=== PATIENT | female | born 1965 | race Caucasian/White ===

== ENCOUNTER 2017-03-17 12:41 | Emergency (ER) | payer SELFPAY ==
--- NOTE | 2017-03-17 12:54 | ED Physician Documentation ---
Abdominal Pain - HISTORIAN Historian: patient - HPI Stated Complaint: abdominal pain Chief Complaint: Abdominal Pain Onset: days ago (3) Duration: constant, persistent, worse Timing: worse Context: denies: out of country travel, bad food, recent trauma Severity: moderate Quality: pain, sharp Associated Symptoms: none, loss of appetite. denies: fever, nausea, vomiting, chest pain Exacerbated by: movements, upright position. denies: cough Relieved by: supine Further Comments: yes (Patient states one year ago she had a colon resection. She had no residual issues post surgery. However three days ago she started with a pain in her abdomen (which she reports she gets and this pain is usually gas) She states this am the pain was increasing and sharp (mid abdomen below umbulicus) she denies a fever. She has had two episodes of vomiting. She denies any new exposures. No blood in stool or vomit. She has not tried anything OTC for pain) - ROS CONST: no problems GI/: denies: constipation CVS/RESP: denies: shortness of breath, hurts to breath MS/SKIN/LYMPH: none NEURO/PSYCH: denies: headache, dizziness - SOCIAL HX Smoking History: cigarettes Alcohol Use: none Drug Use: none - FAMILY HX Family History: none - PAST HX Past History: other (HTN she does not take her meds ) Other History: other Surgeries/Procedures: other (colon resection x 1 year ago ) Home Medications: Ambulatory Orders Medication Instructions Recorded NK [NK] 03/17/17 Allergies/Adverse Reactions: Allergies Allergy/AdvReac Type Severity Reaction Status Date / Time No Known Allergies Allergy Verified 03/17/17 13:03 - VITAL SIGNS Vital Signs: Vital Signs Temp Pulse Resp BP Pulse Ox 98.0 F 71 18 160/99 96 03/17/17 12:44 03/17/17 12:44 03/17/17 12:44 03/17/17 12:44 03/17/17 12:44 - REVIEWED ASSESSMENTS Nursing Assessment Reviewed: Yes Vitals Reviewed: Yes ED Results Lab/Radiology - Lab Results Lab Results: Lab Results 03/17/17 03/17/17 13:20 13:20 WBC 5.80 K/ul K/ul (4.00-12.00) RBC 5.42 M/ul H M/ul (3.90-5.20) Hgb 17.7 g/dL H g/dL (12.0-16.0) Hct 51.1 % H % (34.5-46.5) MCV 94.3 fl fl (80.0-100.0) MCH 32.7 pg pg (28.0-34.0) MCHC 34.7 g/dL g/dL (30.0-36.0) RDW 13.6 % % (11.3-14.3) Plt Count 179 K/mm3 K/mm3 (130-400) Neut % (Auto) 76.3 % % (39.0-79.0) Lymph % (Auto) 13.9 % L % (16.0-50.0) Tripp % (Auto) 5.1 % % (0.0-11.0) Eos % (Auto) 3.0 % % (0.0-6.8) Baso % (Auto) 0.2 (0.0-1.5) Neut # (Auto) 4.4 # k/uL # k/uL (1.4-7.7) Lymph # (Auto) 0.8 # k/uL # k/uL (0.6-4.0) Tripp # (Auto) 0.3 # k/uL # k/uL (0.0-0.9) Eos # (Auto) 0.2 # k/uL # k/uL (0.0-0.6) Baso # (Auto) 0.0 # k/uL # k/uL (0.0-0.5) Reactive Lymphs % 1.4 % % (0.0-5.0) Reactive Lymphs # 0.1 # k/uL # k/uL (0.0-0.8) Sodium 135 mmol/L L mmol/L (136-145) Potassium 4.2 mmol/L mmol/L (3.5-5.1) Chloride 102 mmol/L mmol/L (98-107) Carbon Dioxide 26 mmol/L mmol/L (22-30) BUN 17 mg/dL mg/dL (7-17) Creatinine 0.70 mg/dL mg/dL (0.52-1.04) Estimated Creat Clear 216 Est GFR ( Amer) > 60 (60 - ) Est GFR (Non-Af Amer) > 60 (60 - ) Glucose 99 mg/dL mg/dL (74-106) Calcium 9.6 mg/dL mg/dL (8.4-10.2) Total Bilirubin 1.5 mg/dL H mg/dL (0.2-1.3) AST 21 U/L U/L (15-46) ALT 32 U/L U/L (13-69) Alkaline Phosphatase 77 U/L U/L (38-126) Total Protein 7.3 g/dL g/dL (6.3-8.2) Albumin 3.9 g/dL g/dL (3.5-5.0) - Radiology Radiology Impressions: Examination: CT Abdomen/pelvis History: Abdominal discomfort. History of abdominal hernias. Comparison exams: None available for direct review Technique: CT Abdomen/pelvis with IV protocol. Findings: Liver demonstrates diffuse low attenuation. No central lesion. Splenic cysts. Adrenals, pancreas, and gallbladder are without gross irregularity. No abnormal enhancement. No gallstone. Surgical clips involving the left kidney. Right kidney without suspicious calcification. No abnormal ureteric dilation or central calcification in their course through the abdomen and pelvis. Bladder margin without gross abnormality. Bladder decompressed. Abdominal aorta demonstrates peripheral atherosclerotic disease. No aneurysm. Cardiac silhouette not enlarged. No pericardial effusion. Midline abdominal hernia. Numerous loops of small bowel extending to the hernia and demonstrate dilation and air fluid levels. Stool within the large bowel limiting sensitivity. Sigmoid diverticula. No adjacent inflammation. No free fluid. Anterior abdominal wall mesh. Hiatal hernia. Osseous structures demonstrate degenerative changes.. Lung bases demonstrate dependent atelectasis. No effusion. Impression: Anterior midline hernia. Numerous loops of small bowel extending to the hernia demonstrating dilation, mucosal thickening, and inflammation consistent with small bowel obstruction/incarceration. Surgical consultation recommended if not already obtained. Fatty liver. No gallstone. Left renal surgical changes. Correlate with pertinent history. No suspicious a right renal calcifications. Sigmoid diverticulosis. No evidence for acute diverticulitis. Hiatal hernia. Lung base scarring - no consolidation or effusion. Electronically signed on Mar 17, 2017 2:17:42 PM GROUND PRODUCTS DIRECTOR by: Boone Davila - Orders Orders: ED Orders Category Date Time Status Place IV Lock 1T Care 03/17/17 13:[address] ABD & PELVIS W/ CON Stat Exams 03/17/17 Taken CBC/PLATELET/DIFF Stat Lab 03/17/17 13:20 Completed CMP Stat Lab 03/17/17 13:20 Completed UA W/MICRO IF INDICATED Routine Lab 03/17/17 13:16 Ordered 0.9 % Sodium Chloride [Normal Saline] 1,000 ml Med 03/17/17 13:16 Discontinued IV Q1H Ketorolac Tromethamine [Toradol] Med 03/17/17 13:17 Discontinued 30 mg IVP NOW ONE Abdominal Pain Physical Exam - Physical Exam General Appearance: mild distress EENT: eye inspection normal RESPIRATORY: no resp distress, chest non-tender, breath sounds normal CVS: reg rate & rhythm, heart sounds normal, equal pulses, no murmur ABDOMEN: soft, normal bowel sounds, guarding, other (midline abdominal pain with palpation . Buldging area that is painful in same area of pain. ) BACK: normal inspection SKIN: warm/dry, normal color EXTREMITIES: non-tender, normal range of motion, no evidence of injury NEURO: oriented X3, CN's nml as tested Vital Signs: Vital Signs Temp Pulse Resp BP Pulse Ox 98.0 F 71 18 160/99 96 03/17/17 12:44 03/17/17 12:44 03/17/17 12:44 03/17/17 12:44 03/17/17 12:44 Discharge Clincal Impression: Bowel obstruction Qualifiers: Intestinal obstruction type: unspecified Intestinal obstruction extent: partial Qualified Code(s): K56.600 - Partial intestinal obstruction, unspecified as to cause Referrals: Primary Doctor,No [Primary Care Provider] - 2 Days Comments: [facility] in regards to bowel obstruction. Dr Rizo in ER is accepting the patient. Patient notified. She reports her pain is better at this time. Denies any nausea. Transfer will be started. DG Condition: Stable Disposition: XFER SHT-TRM HOSP Decision to Admit: [id number] Date of Decison to Admit: 03/17/17 Decision Time: 14:40
[2017-03-17] MEDS ORDERED: 0.9 % SODIUM CHLORIDE 1,000 ML IV ONE (13:16)
[2017-03-17] MEDS ORDERED: KETOROLAC TROMETHAMINE 30 MG/1ML VIAL IVP ONE (13:17)
[2017-03-17 13:29] LABS: BASOPHILS % 0.2 (0.0-1.5); MEAN CORPUSCULAR HEMOGLOBIN 32.7 pg (28.0-34.0); MEAN CORPUSCULAR VOLUME 94.3 fl (80.0-100.0); MONOCYTES % 5.1 % (0.0-11.0); NEUTROPHILS # 4.4 # k/uL (1.4-7.7)
[2017-03-17 13:43] LABS: eGFR (African) > 60; eGFR (Non-African) > 60
--- NOTE | 2017-03-17 14:53 | Diagnostic Imaging Report ---
HEENA ORTIZ [facility] [address] [address] [address] [place], [place]. [address] Report Submission Date: Mar 17, 2017 2:17:42 PM DOOR TO DOOR SELLING DISTRIBUTOR Patient Study Name: MEME RICHARDSON Date: Mar 17, 2017 1:45:19 PM DOOR TO DOOR SELLING DISTRIBUTOR Modality Type: CT\SR Gender: F Description: CT ABD & PELVIS W/ CON : 61 Institution: [facility] Physician: HEENA ORTIZ Examination: CT Abdomen/pelvis History: Abdominal discomfort. History of abdominal hernias. Comparison exams: None available for direct review Technique: CT Abdomen/pelvis with IV protocol. Findings: Liver demonstrates diffuse low attenuation. No central lesion. Splenic cysts. Adrenals, pancreas, and gallbladder are without gross irregularity. No abnormal enhancement. No gallstone. Surgical clips involving the left kidney. Right kidney without suspicious calcification. No abnormal ureteric dilation or central calcification in their course through the abdomen and pelvis. Bladder margin without gross abnormality. Bladder decompressed. Abdominal aorta demonstrates peripheral atherosclerotic disease. No aneurysm. Cardiac silhouette not enlarged. No pericardial effusion. Midline abdominal hernia. Numerous loops of small bowel extending to the hernia and demonstrate dilation and air fluid levels. Stool within the large bowel limiting sensitivity. Sigmoid diverticula. No adjacent inflammation. No free fluid. Anterior abdominal wall mesh. Hiatal hernia. Osseous structures demonstrate degenerative changes.. Lung bases demonstrate dependent atelectasis. No effusion. Impression: Anterior midline hernia. Numerous loops of small bowel extending to the hernia demonstrating dilation, mucosal thickening, and inflammation consistent with small bowel obstruction/incarceration. Surgical consultation recommended if not already obtained. Fatty liver. No gallstone. Left renal surgical changes. Correlate with pertinent history. No suspicious a right renal calcifications. Sigmoid diverticulosis. No evidence for acute diverticulitis. Hiatal hernia. Lung base scarring - no consolidation or effusion. Electronically signed on Mar 17, 2017 2:17:42 PM DOOR TO DOOR SELLING DISTRIBUTOR by: Boone PIZARRO
[2017-03-17 15:05] VITALS: BP 130/86
[2017-03-18 21:33] LABS: APPEARANCE,URINE CLEAR (CLEAR); COLOR,URINE YELLOW (YELLOW); OCCULT BLOOD,URINE NEGATIVE (NEGATIVE); PH URINE 5.5 (5.0 - 8.0); UROBILINOGEN URINE >=8.0 Eu (0.2-1.0)
== END 2017-03-17 14:50 | disposition short-term general hospital (02) ==
LOC: ED 12:41
DX: K56.600 Partial intestinal obstruction, unspecified as to cause (principal)
CPT/HCPCS: 74177; 80053; 85025; J1885; J7030; 81002; 96361; 96374; 99284; Q9967; S1016

== ENCOUNTER 2018-09-07 00:51 | Emergency (ER) | payer SELFPAY ==
[2018-09-07] MEDS ORDERED: cloNIDine HCL 0.1 MG TABLET PO ONE (01:10)
[2018-09-07] MEDS ORDERED: OXYMETAZOLINE HCL 0.05% NASAL SPRAY 30 ML IEN ONE (01:10)
[2018-09-18 18:15] LABS: eGFR (Non-African) > 60
[2018-09-18 18:16] LABS: BASOPHILS % 1.5 % (0.0-1.5)
== END 2018-09-07 03:50 ==
LOC: ED 00:51
DX: R04.0 Epistaxis (principal)
CPT/HCPCS: 30905; 36415; 80053; 85025; 85610; 85730; 99285; S1016

== ENCOUNTER 2018-12-05 09:41 | Outpatient (CLI) | payer OTHER ==
[2018-10-28 21:23] VITALS: BP 148/85
[~2018-12-05 09:41] MED LIST: BUPIVACAINE HCL 0.25% (2.5MG/ML) PF 10ML VIAL IV ONE; Lidocaine 1% 5ml 10 MG/ML VIAL ONE; methylPREDNISolone ACETATE 40 MG/ML VIAL IM ONE
--- NOTE | 2018-12-10 16:24 | CONSULTATION REPORT ---
CHIEF COMPLAINT: Left knee pain worse than right. HISTORY OF PRESENT ILLNESS: The patient is a 53-year-old female with BMI 47.9, seen today for recommendations regarding treatment of primarily left knee pain although she said the right hurts some. She has had troubles for three months or more. She says the onset has primarily been gradual, but it has been bothering her more recently. She denies metal allergy. She indicates that she says that the knee started hurting worse when she had a bone density scan done about three months ago. She says that it just started hurting worse when she had her legs straight and the left knee twisted and she has been having discomfort ever since. She does acknowledge having had arthritis in that left knee, longstanding. The right knee has been similarly affected, but not as bad. She notes that the pain is diffuse or allover, left knee. She describes it as aching, sharp, throbbing, tight, moderate in severity, 4/10 at rest and 9/10 with activity. She says she has had a decrease in knee motion and also presence of some knee swelling and stiffness. Her knee pain is worse with activity, weightbearing, walking, climbing stairs, bending, lateral movements, getting in and out of a car or chair, rising after sitting, kneeling, squatting, standing, descending stairs, better with Tylenol and rest. The pain has progressed with activities of daily living. She does not have night pain and the knee does not awaken her at night. She does report a fear of falling. She has experienced some locking, catching, giving out type symptomatology. She does indicate her ability to walk and get around is with moderate to mild difficulty. She has not used ambulatory assistive device. She is not taking narcotic pain medication for this problem. She did try Aleve, but it did not work. She has tried that for three months. She indicates that she has not had any steroid injections in either knee. She does report having had arthroscopic surgery on the right knee about 15 years ago and on the left knee a few months after that. Both were performed at [facility] in [place], [place]. She says that these procedures were done for bone spurs. She says she was told at that point that if she needed any more surgery, it would need to be a knee replacement in regard to the left knee, but she has not had further evaluations for consideration of that, she indicates. She does recall having had a series of viscosupplementation injections in each knee years ago, none recently. She has done physical therapy for three months, says she has tried using crutches for three months. She does note that Tylenol helps a little, not much. She does report back pain, also reports having some numbness, tingling and weakness. She reports having gone to the emergency department at the [facility] on 10/28/2018, was advised she had arthritis of the left knee, given a prescription for Medrol 4 mg daily, dispense 21, as well as naproxen. She received orthopedic referral at that time as well, was seen by Stephanie Oliveira, nurse practitioner. I did review the plain film x-rays obtained and the 10/28/2018 left knee x-rays reveal [id number] patellofemoral and mild lateral femorotibial compartment osteoarthritis with old peripatellar ossicles present, no evidence of fracture, dislocation or joint effusion. PAST MEDICAL/SURGICAL HISTORY: She reports positive past medical history for hypertension, pulmonary hypertension, gastric reflux, multiple abdominal hernias treated with mesh, appendectomy, cervical spine disease treated with surgical intervention in [place], [place] about 9 to 10 years ago. The patient indicates additional surgical intervention includes sections in the past times 2. She does report dental problems. She reports seeing Dr. Nasrin Zarco for routine primary care needs. The patient does indicate her asthma was diagnosed in 1988, hypertension 2004, not sure when her umbilical hernias were diagnosed. She indicates sleep apnea diagnosed around 2014. She did have an episode of pneumonia in 2019, notes that she does wear a CPAP for her sleep apnea. She reports additional surgical intervention including tonsillectomy, treatment of ruptured disc, appendix rupture 2016. SOCIAL HISTORY: The patient does smoke cigarettes, one pack per day since she was 21 years old. She denies alcohol use, abuse or history of same. She denies illicit drug use, abuse or history of same. She does not take fish oil. The patient has had three pregnancies, two live births, one . ALLERGIES: The patient has no known drug allergies. CURRENT MEDICATIONS: Include Tylenol 500 mg three to four tabs p.o. every three to four days, takes these on as-needed basis. She also takes two blood pressure medications, does not know the names of them. She also has an asthma inhaler name of which she does not recall and says she has not used that in about a year. She does indicate she has an oxygen concentrator, is advised that she needs to be on 3 liters of oxygen at night for her pulmonary hypertension. She normally does use the oxygen concentrator. FAMILY HISTORY: The patient reports family history of blood clots, bone disease and rheumatoid disorder. Family history is positive in mother for asthma, diabetes, hypertension, hypercholesterolemia, obesity and stroke. Positive in dad for hypertension. 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 REVIEW OF SYSTEMS: Positive for fatigue and weakness, positive for breast mass, positive for loss of hair, ringing in the ears, nosebleeds and nasal congestion, possible blurred vision, eye pain, flashing spots/light, glasses, positive for shortness of breath with activity, positive for leg swelling. The patient indicates she can climb one flight of stairs and sleeps on one pillow. She indicates she cannot walk two blocks without shortness of breath. She indicates she has had an echocardiogram workup, does not know what year it was. She indicates respiratory is positive for wheezing and asthma, bronchitis, history of pneumonia, sleep apnea. She has had chest x-ray and pulmonary function tests in the past. Gastrointestinal: Positive for nausea, vomiting, heartburn, diarrhea, constipation, stomach pain, blood in stools, black tarry stools in the past. She indicates she has had abdominal pain in the right upper and middle upper abdomen, positive abdominal fullness/increased gas/bloating or belching on review of systems, positive nausea, vomiting, positive indigestion, heartburn, positive fatigue. She does indicate positive blood in urine on genitourinary review of systems. Psychiatric: Negative. Neurologic: Positive headaches, dizziness, fainting, tremors and arm and leg weakness. PHYSICAL EXAMINATION: VITAL SIGNS: The patient's vital signs obtained today include pulse 73, respirations 14, blood pressure 146/115. The patient's weight is 262 pounds with a height of 5 feet 2 inches with BMI 47.9. HEENT: Normocephalic. NECK: Supple. LUNGS: Clear to percussion bilaterally. CARDIOVASCULAR: Regular rate and rhythm. ABDOMEN: Soft, nontender, obese. EXTREMITIES: There is tenderness along the medial and lateral joint lines of the left knee. The patient does have crepitus on range of motion of the left knee. No gross instability is appreciated left knee. There is mild genu varus. The patient does have a mild reduction of left quadriceps strength versus right. There is reduced left quadriceps tone versus right. She acknowledges she has been using the right lower extremity more than left because the left hurts so much. Moderate effusion is present left knee. X-RAYS: The patient has x-rays obtained 10/28/2018 left knee, which reveal [id number] patellofemoral and mild lateral femorotibial compartment osteoarthritis observed with old peripatellar ossicles present. There is no evidence of fracture, dislocation or joint effusion. IMPRESSION: 1. Osteoarthritis left knee. 2. Extreme obesity. 3. Nicotine usage. 4. Pulmonary hypertension. 5. Sleep apnea. 6. The patient requiring 3 liters of oxygen at night, uses oxygen concentrator. 7. History of arthroscopy of both knees approximately 15 years ago in [place], [place]. 8. Hypertension. 9. History of cervical spine surgery for a ruptured disc approximately 10 years ago in [place], [place]. 10. Gastroesophageal reflux disease history. RECOMMENDATIONS: Options are discussed with the patient. I advised her that I suspect that her symptoms are primarily, as discussed with her in the emergency department, a result of her underlying osteoarthritic disease. This is not unexpected given her history of arthroscopy of both knees about 15 years ago, reports from the operative surgeon, via patient, that she did have substantial arthritis and likely would not benefit from any more surgical intervention short of a knee replacement at some point in the indeterminate future, as well as her extreme obesity which is demonstrated to exacerbate osteoarthritic disease. I did alcohol and drug counselor the patient that her current x-ray findings do not show significant advanced osteoarthritic disease to warrant consideration of knee replacement on radiographic criteria. Moreover, her level of obesity as well as her cigarette usage make her unacceptable as a surgical candidate for total joint replacement. As well, she has a number of medical issues, which would require further improvement were she to entertain joint replacement. After discussing various factors with her, answering all of her questions, she voices a desire to proceed with a corticosteroid injection in the left knee. This was performed today. I recommended nicotine cessation, discussed rationale behind that with her. I also recommend weight reduction efforts. We did discuss bariatric measures that can be undertaken surgically, should she want to proceed with that. She said currently she has been told that she needs to lose some weight before they will consider her for bariatric surgery, and I indicated to her that that often is the case and the rationale for that. She acknowledges. I answered all of her questions to her voiced satisfaction. I am optimistic that the injection will help her for a limited timeframe and we discussed this. Again, for her to undergo consideration of joint replacement, she will need to get her BMI under 40, and preferably under 30 to get her risk profile with regard to BMI, to that of a normal range. Moreover, she will need to stop nicotine usage altogether. Short of those measures, the patient should continue with nonsurgical measures for knee pain control. I did advise her to use a walking cane and/or walker for mobilization if she at all feels unsteady on her feet. PROCEDURE NOTE: I sterilely injected the left knee joint with 40 mg of Depo- Medrol with 4 mL of 1% plain Xylocaine and 4 mL of 0.25% plain Marcaine using 22-gauge needle, uneventfully, without complications. The patient tolerated the procedure well. Thank you for the opportunity to evaluate this patient. No follow up is scheduled with orthopedic surgery at this time. Amado Hart MD /Whitney [id number] Job #[id number]
== END 2018-12-05 11:25 ==
LOC: ORHTO 09:41
PROVIDERS: ATTEND Orthopaedic Surgery
DX: M17.12 Unilateral primary osteoarthritis, left knee (principal); E66.9 Obesity, unspecified; Z68.42 Body mass index [BMI] 45.0-49.9, adult; I10 Essential (primary) hypertension; F17.210 Nicotine dependence, cigarettes, uncomplicated; G47.30 Sleep apnea, unspecified; Z99.81 Dependence on supplemental oxygen; Z98.890 Other specified postprocedural states
CPT/HCPCS: 99202; J1030; J3490

== ENCOUNTER 2019-01-30 12:06 | Emergency (ER) | payer OTHER ==
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
[2019-01-30] MEDS: ONDANSETRON HCL/PF 4 MG/ 2ML VIAL IVP ONE (12:30)
[2019-01-30] MEDS: 0.9 % SODIUM CHLORIDE 1,000 ML IV ONE ×2 (12:46→14:22)
[2019-01-30 12:55] LABS: NEUTROPHILS # 11.7 # k/uL (1.4-7.7)
[2019-01-30 13:03] LABS: SEGMENTED NEUTROPHILS % 83 % (39-79)
[2019-01-30 13:06] LABS: eGFR (Non-African) > 60
[2019-01-30 13:39] LABS: TSH 1.7 mIU/l (0.465-4.685)
--- NOTE | 2019-01-30 13:54 | Diagnostic Imaging Report ---
PATIENT MR#: [id number] PATIENT PATIENT NAME: MEME RICHARDSON DATE OF : 1965 REFERRING PHYSICIAN: [place] Nena Leon EXAM DATE: 01/30/2019 ACCESSION NUMBER: [id number] EXAM DESCRIPTION: CT ABD PELVIS W/ CON Exam: CT abdomen and pelvis with contrast. History: Abdominal pain. Axial images through the abdomen and pelvis after IV infusion of 90 cc Omnipaque is submitted along w ith sagittal and coronal reformatted images. No previous studies are available for comparison. Focal eventration of the left hemidiaphragm posteriorly is noted. No abnormality to the visualized l ower lung rdz are noted. No free intraperitoneal air is identified. The gallbladder is distended without stones. The liver is normal in attenuation and enhancement. Th e spleen is associated with punctate calcifications and small cysts noted inferiorly. The pancreas is of normal attenuation and enhancement. The adrenal glands are normal configuration. The abdominal aorta is of normal caliber. No periaorti c lymphadenopathy is identified. A cystic structure in the midpole of the left kidney is noted. Surgical clips at the left kidney may indicate previous resection. The right kidney is of normal attenuation and enhancement. No jemal hydronephrosis is id entified. The urinary bladder is partially distended. The uterus is anteverted and somewhat lobulated in configura tion which may represent a myomatous uterus. No free cul-de-sac fluid is identified. There are surgical clips over the anterior abdominal wall suggestive of previous ventral wall hernia repair. However, there is redemonstration of a large ventral wall hernia containing numerous loops of small bowel and large bowel with thickened bowel wall loops and surrounding inflammatory changes to suggest incarceration. Diverticul a in the distal transverse colon, descending colon and sigmoid colon are noted. Degenerative changes in the lumbar spine is noted. 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 Cystic structure in the midpole of the left kidney with associated surgical clips. No hydronephrosis is seen. Anteverted myomatous uterus. Previous attempt at a ventral wall hernia repair. Large ventral wall hernia in the lower abdomen contain several incarcerated loops of bowel. Diverticulosis. Read by: Dr. Naveen Henriquez Transcribed by: Transcribed Date: Electronically signed by: Dr. Naveen Henriquez Date signed: 01/30/2019 1:53:25 PM
[2019-01-30] MEDS: fentaNYL CITRATE/PF 100 MCG/2 ML INJ. IV ONE (14:29)
[2019-01-30] MEDS: PROMETHAZINE HCL 25 MG/ML VIAL IM ONE (14:57)
[2019-01-30 15:00] LABS: APPEARANCE,URINE CLOUDY (CLEAR); COLOR,URINE RED (YELLOW); OCCULT BLOOD,URINE TRACE-INTACT (NEGATIVE); PH URINE 5.5 (5.0 - 8.0); UROBILINOGEN URINE >=8.0 Eu (0.2-1.0)
[2019-01-30 15:33] VITALS: BP 114/69
== END 2019-01-30 15:45 | disposition short-term general hospital (02) ==
LOC: ED 12:06
DX: K43.6 Other and unspecified ventral hernia with obstruction, without gangrene (principal)
CPT/HCPCS: 74177; 80053; 81002; 83880; 84439; 84443; 85025; 87086; 96361; 96372; 96374; 96375; 99283; 99284; J2405; J2550; J3010; J7030